=== PATIENT | male | born 1950 | race Caucasian/White ===

== ENCOUNTER → 2017-10-08 | Outpatient (CLI) | payer OTHER, MEDICARE | LOC: SUN.DIA 13:25 | DX: E11.40 Type 2 diabetes mellitus with diabetic neuropathy, unspecified (principal); E78.5 Hyperlipidemia, unspecified; I10 Essential (primary) hypertension; Z71.3 Dietary counseling and surveillance | CPT/HCPCS: G0108 ==

== ENCOUNTER 2017-11-29 05:40 | Day surgery (SDC) | payer MEDICARE, OTHER ==
[~2017-11-29] VITALS: Ht 167.6 cm; Wt 107.5 kg
[2017-11-29 06:04] VITALS: BP 145/75; PULSE 58; TEMP 97.3
[2017-11-29] MEDS ORDERED: PRIL40 PO (06:28)
[2017-11-29] MEDS ORDERED: PRINZIDE 12.5 M1 TA1 PO (06:29)
[2017-11-29] MEDS ORDERED: ASPIRIN 81M81 MG/TA2 PO (06:29)
[2017-11-29] MEDS ORDERED: CRESTOR20 MG PO (06:30)
[2017-11-29 08:20] VITALS: BP 144/78; PULSE 57; TEMP 97.4
[2017-11-29 08:35] VITALS: BP 153/82; PULSE 50
[2017-11-29] MEDS ORDERED: COLACE 100100 MG/CAP PO (08:44)
[2017-11-29] MEDS ORDERED: NORCO 325 MG-51 TAB PO (08:44)
[2017-11-29] MEDS ORDERED: MOTRIN 600600 MG/TAB PO (08:44)
[2017-11-29 08:50] VITALS: BP 147/89; PULSE 56
== END 2017-11-29 09:18 | disposition home or self-care (01) ==
LOC: SDCO 05:40
DX: D17.1 Benign lipomatous neoplasm of skin and subcutaneous tissue of trunk (principal); Z80.0 Family history of malignant neoplasm of digestive organs; G47.33 Obstructive sleep apnea (adult) (pediatric); I10 Essential (primary) hypertension; E78.2 Mixed hyperlipidemia; E11.40 Type 2 diabetes mellitus with diabetic neuropathy, unspecified; H91.93 Unspecified hearing loss, bilateral; Z97.4 Presence of external hearing-aid; K22.70 Barrett's esophagus without dysplasia; Z68.37 Body mass index [BMI] 37.0-37.9, adult
CPT/HCPCS: J0690; J2704; J3010; J7030

== ENCOUNTER → 2017-12-18 | Outpatient (CLI) | payer MEDICARE, OTHER ==
[~2017-12-18] MED LIST: ASPIRIN 81M81 MG/TA2 PO; COLACE 100100 MG/CAP PO; CRESTOR20 MG PO; MOTRIN 600600 MG/TAB PO; NORCO 325 MG-51 TAB PO; PRIL40 PO; PRINZIDE 12.5 M1 TA1 PO
== END ==
LOC: SUN.DIA 09:41
DX: E11.40 Type 2 diabetes mellitus with diabetic neuropathy, unspecified (principal); E78.5 Hyperlipidemia, unspecified; I10 Essential (primary) hypertension; Z68.37 Body mass index [BMI] 37.0-37.9, adult; Z71.3 Dietary counseling and surveillance
CPT/HCPCS: G0108

== ENCOUNTER → 2018-01-15 | Outpatient (CLI) | payer MEDICARE, OTHER | LOC: SUN.DIA 10:16 | DX: E11.40 Type 2 diabetes mellitus with diabetic neuropathy, unspecified (principal); E78.5 Hyperlipidemia, unspecified; I10 Essential (primary) hypertension; Z68.38 Body mass index [BMI] 38.0-38.9, adult; Z71.3 Dietary counseling and surveillance | CPT/HCPCS: G0108 ==

== ENCOUNTER 2018-01-24 16:13 | Emergency (ER) | payer MEDICARE, OTHER ==
[~2018-01-24] VITALS: Ht 167.6 cm; Wt 104.5 kg
[2018-01-24 16:21] VITALS: TEMP 97
[2018-01-24 17:38] LABS: BASO % 0.4 % (0.0-2.0); EOS # 0.4 (0.0-0.7); EOS % 4.8 % (0-4.0); GRAN # 3.6 (1.4-6.5); GRAN % 48.8 % (42.2-75.2); HEMATOCRIT 48.5 % (42.0-52.0); HEMOGLOBIN 16.8 g/dl (13.5-18.0); LYMPH # 2.5 (1.2-3.4); LYMPH % 34.6 % (20.0-51.0); MEAN CELL VOLUME 90 fl (80.0-100.0); MEAN CORPUSCULAR HEMOGLOBIN 31 pg (27.0-31.0); MEAN CORPUSCULAR HGB CONC 35 g/dl (33.0-37.0); MEAN PLATELET VOLUME 9.8 fl (7.4-10.4); MONO # 0.8 (0.1-0.6); MONO % 11.3 % (1.7-9.3); PLATELET COUNT 231 K/mm3 (130-400); REDCELL DISTRIBUTION WIDTH-CV 12.8 % (11.5-14.5)
[2018-01-24] MEDS ORDERED: PREDNISONE20 MG PO (17:57)
[2018-01-24 18:11] LABS: ALBUMIN 4.9 gm/dL (3.5-5.0); BILIRUBIN,TOTAL 0.5 mg/dL (0.0-1.0); CALCIUM 9.4 mg/dL (8.4-10.2); CREATININE, serum 0.86 mg/dL (0.66-1.25); POTASSIUM 3.5 mmol/L (3.4-5.0); TOTAL PROTEIN 8.1 gm/dL (6.4-8.2)
[2018-01-24 18:18] VITALS: BP 148/74; PULSE 76
== END 2018-01-24 18:18 | disposition home or self-care (01) ==
LOC: COL.ER 16:13
PROVIDERS: Emergency Medicine
DX: G51.0 Bell's palsy (principal); Z79.82 Long term (current) use of aspirin
CPT/HCPCS: J7512

== ENCOUNTER → 2018-05-14 | Outpatient (CLI) | payer MEDICARE, OTHER ==
[~2018-05-14] MED LIST changes: +PREDNISONE20 MG PO
== END ==
LOC: SUN.DIA 02-19 15:04
DX: E11.40 Type 2 diabetes mellitus with diabetic neuropathy, unspecified (principal); E78.5 Hyperlipidemia, unspecified; I10 Essential (primary) hypertension; Z68.35 Body mass index [BMI] 35.0-35.9, adult; Z71.3 Dietary counseling and surveillance

== ENCOUNTER → 2018-08-13 | Outpatient (CLI) | payer MEDICARE, OTHER | LOC: COL.RAD 14:15 | DX: M54.2 Cervicalgia (principal) ==

== ENCOUNTER → 2019-09-23 | Outpatient (CLI) | payer MEDICARE, OTHER ==
[2019-09-23 11:06] LABS: BASO % 0.4 % (0.0-2.0); EOS # 0.2 (0.0-0.7); EOS % 3.4 % (0-4.0); GRAN # 4.3 (1.4-6.5); GRAN % 60.6 % (42.2-75.2); HEMATOCRIT 46.1 % (42.0-52.0); LYMPH # 1.7 (1.2-3.4); LYMPH % 23.5 % (20.0-51.0); MEAN CELL VOLUME 91 fl (80.0-100.0); MEAN CORPUSCULAR HEMOGLOBIN 32 pg (27.0-31.0); MEAN CORPUSCULAR HGB CONC 35 g/dl (33.0-37.0); MEAN PLATELET VOLUME 9.9 fl (7.4-10.4); MONO # 0.8 (0.1-0.6); MONO % 11.8 % (1.7-9.3); PLATELET COUNT 232 K/mm3 (130-400); RED BLOOD COUNT 5.06 M/mm3 (4.20-5.60); REDCELL DISTRIBUTION WIDTH-CV 12.7 % (11.5-14.5)
[2019-09-23 11:20] LABS: ALBUMIN 4.6 gm/dL (3.5-5.0); BILIRUBIN,TOTAL 0.6 mg/dL (0.0-1.0); CALCIUM 9.7 mg/dL (8.4-10.2); CHOLESTEROL RISK RATIO 3.2; CREATININE, serum 0.86 (0.66-1.25); MAGNESIUM 1.8 mg/dL (1.6-2.3); POTASSIUM 3.9 mmol/L (3.4-5.0); TOTAL PROTEIN 7.9 gm/dL (6.4-8.2)
[2019-09-23 11:22] LABS: URINE PROTEIN:CREAT RATIO 0.2 (0.00-0.14)
== END ==
LOC: COL.LAB 10:12
PROVIDERS: Family Medicine
DX: I10 Essential (primary) hypertension (principal); E78.00 Pure hypercholesterolemia, unspecified; K21.9 Gastro-esophageal reflux disease without esophagitis

== ENCOUNTER → 2020-11-30 | Outpatient (CLI) | payer MEDICARE, OTHER | LOC: COL.RAD 10:03 | DX: K76.0 Fatty (change of) liver, not elsewhere classified (principal) ==

== ENCOUNTER → 2022-03-13 | Outpatient (CLI) | payer MEDICARE, OTHER | LOC: COL.RAD 06:42 | DX: M47.816 Spondylosis without myelopathy or radiculopathy, lumbar region (principal); M47.817 Spondylosis without myelopathy or radiculopathy, lumbosacral region; M51.26 Other intervertebral disc displacement, lumbar region; M51.27 Other intervertebral disc displacement, lumbosacral region; M48.061 Spinal stenosis, lumbar region without neurogenic claudication; M48.07 Spinal stenosis, lumbosacral region | CPT/HCPCS: A9575 ==